=== PATIENT | male | born 1990 | race Caucasian/White ===

== ENCOUNTER 2019-06-04 09:31 | Emergency (ER) | payer SELFPAY ==
[2019-06-04] MEDS ORDERED: dexAMETHasone 10 MG/ML VIAL ONE (10:02)
[2019-06-04] MEDS ORDERED: KETOROLAC 30 MG/ML INJ ONE (10:02)
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
== END 2019-06-04 10:35 | disposition home or self-care (01) ==
LOC: ER 09:31
DX: M10.9 Gout, unspecified (principal)
CPT/HCPCS: 96374; 96375; 99283; J1100

== ENCOUNTER 2019-12-16 21:04 | Emergency (ER) | payer SELFPAY ==
[2019-12-16] MEDS ORDERED: HYDROCODONE/APAP 10/325 TAB ONE (22:29)
[2019-12-16] MEDS ORDERED: COLCHICINE 0.6 MG TAB ONE (22:29)
[2019-12-16] MEDS ORDERED: predniSONE 20 MG TAB ONE (22:29)
[2019-12-16] MEDS ORDERED: KETOROLAC 30 MG/ML INJ ONE (22:29)
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
--- NOTE | 2019-12-16 22:59 | RAD REPORT ---
EXAM DESCRIPTION: RAD - Foot Left 3 View - 12/16/2019 10:30 pm CLINICAL HISTORY: PAIN COMPARISON: FOOT AP LAT dated 01/15/2010; FOOT AP LAT dated 01/15/2010 FINDINGS: Small plantar calcaneal spur is noted. No fracture or dislocation evident. Multiple small radiodensities are seen in the soft tissues, likely foreign bodies.
[2019-12-17 00:48] VITALS: TEMP 98.2
[2019-12-17 00:50] VITALS: BP 123/92; O2SAT 99
== END 2019-12-16 23:22 | disposition home or self-care (01) ==
LOC: ER 21:04
DX: M25.472 Effusion, left ankle (principal); M10.9 Gout, unspecified
CPT/HCPCS: 96372; 99283; J7512

== ENCOUNTER 2020-03-08 10:21 | Emergency (ER) | payer SELFPAY ==
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
[2020-03-08] MEDS ORDERED: COLCHICINE 0.6 MG TAB ONE (11:32)
[2020-03-08] MEDS ORDERED: METHYLPREDNISOLONE 125 MG INJ ONE (11:33)
[2020-03-08 12:18] VITALS: TEMP 98.2; O2SAT 98
[2020-03-08 12:20] VITALS: BP 136/91
== END 2020-03-08 11:56 | disposition home or self-care (01) ==
LOC: ER 10:21
DX: M10.9 Gout, unspecified (principal); F17.210 Nicotine dependence, cigarettes, uncomplicated
CPT/HCPCS: 96372; 99284; J2930

== ENCOUNTER 2020-04-24 16:38 | Emergency (ER) | payer SELFPAY ==
[2020-04-24] MEDS ORDERED: KETOROLAC 30 MG/ML INJ ONE (17:25)
[2020-04-24] MEDS ORDERED: predniSONE 20 MG TAB ONE (17:25)
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
[2020-04-24] MEDS ORDERED: CIPROFLOXACIN HCL 500 MG TAB ONE (17:51)
[2020-04-24] MEDS ORDERED: COLCHICINE 0.6 MG TAB ONE (17:52)
[2020-04-24 18:07] VITALS: TEMP 97.8; O2SAT 99
[2020-04-24 18:08] VITALS: BP 120/80
== END 2020-04-24 18:01 | disposition home or self-care (01) ==
LOC: ER 16:38
DX: M10.9 Gout, unspecified (principal)
CPT/HCPCS: 96372; 99283; J7512

== ENCOUNTER 2020-12-05 11:32 | Emergency (ER) | payer SELFPAY ==
[2020-12-05] MEDS ORDERED: NA CHLORIDE 0.9% 1,000 ML ONE (12:46)
--- NOTE | 2020-12-05 12:54 | RAD REPORT ---
EXAM DESCRIPTION: RAD - Knee Left 3 View - 12/05/2020 12:45 pm CLINICAL HISTORY: PAIN COMPARISON: No comparisons FINDINGS: Soft tissue swelling is seen and involving the knee. Small to moderate suprapatellar joint effusion is evident. No fracture or dislocation. No erosion or aggressive bone lesion.
[2020-12-05] MEDS ORDERED: LIDOCAINE 1% MPF 5 ML VIAL ONE (12:58)
[2020-12-05] MEDS ORDERED: KETOROLAC 30 MG/ML INJ ONE (12:58)
[2020-12-05 13:00] LABS: ALT/SGPT 21 U/L (12-78); AST/SGOT 13 U/L (15-37); Albumin 3.6 g/dL (3.4-5.0); Alkaline Phosphatase 62 U/L (45-117); BUN Blood Urea Nitrogen 10 mg/dL (7-18); Bicarbonate 28 mmol/L (21-32); Bilirubin Total 0.5 mg/dL (0.2-1.0); Glucose Level 91 mg/dL (74-106); Potassium 4.2 mmol/L (3.5-5.1); Protein, Total 7.1 g/dL (6.4-8.2); Sodium Level 143 mmol/L (136-145); Uric Acid 7.6 mg/dL (3.5-7.2)
[2020-12-05 13:06] LABS: Absolute Lymphocytes (CBC) 0.9 K/uL (0.7-4.9); Basophils % 2.4 % (0-1.3); Hematocrit 37.5 % (39.6-49.0); Lymphocytes % 12.8 % (15.3-44.8); RBC Red Blood Cell Count 4.28 M/uL (4.33-5.43)
[2020-12-05 13:38] LABS: Platelet Estimate ADEQ
[2020-12-05 13:39] LABS: Blood Morphology Comment NOT SEEN (NOT SEEN)
[2020-12-05] MEDS ORDERED: LIDOCAINE 1% W/EPI 1:100,000 MDV 20 ML VIAL ONE (14:38)
[2020-12-05] MEDS ORDERED: COLCHICINE 0.6 MG TAB ONE (14:49)
[2020-12-05] MEDS ORDERED: CEFAZOLIN/SWI 1gm 1 GM/10 ML SYR ONE (14:49)
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
[2020-12-05 15:12] VITALS: BP 131/76; TEMP 97.2; O2SAT 99
[2020-12-05 16:09] LABS: Body Fluid WBC 18537 /mm^3
[2020-12-05 16:13] LABS: Appearance TURBID (CLEAR); Body Fluid Source SYNOVIAL; Color of fluid Yellow (COLORLESS)
== END 2020-12-05 15:05 | disposition home or self-care (01) ==
LOC: ER 11:32
PROC: 0S9D3ZX Drainage of Left Knee Joint, Percutaneous Approach, Diagnostic (ICD-10-PCS; principal; 2020-12-05)
DX: M25.462 Effusion, left knee (principal); M10.9 Gout, unspecified; F17.210 Nicotine dependence, cigarettes, uncomplicated
CPT/HCPCS: 36415; 80053; 84550; 85025; 87070; 89050; 96361; 96374; 96375; 99284; J0690; J7030

== ENCOUNTER 2021-04-18 12:20 | Emergency (ER) | payer SELFPAY ==
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
[2021-04-18] MEDS ORDERED: KETOROLAC 30 MG/ML INJ ONE (13:38)
[2021-04-18] MEDS ORDERED: METHYLPREDNISOLONE 125 MG INJ ONE (13:38)
[2021-04-18] MEDS ORDERED: COLCHICINE 0.6 MG TAB ONE (13:38)
[2021-04-18] MEDS ORDERED: CEPHALEXIN 250 MG CAP ONE (13:38)
[2021-04-18 13:53] VITALS: TEMP 98
[2021-04-18 13:55] VITALS: BP 137/88; O2SAT 100
== END 2021-04-18 13:47 | disposition home or self-care (01) ==
LOC: ER 12:20
DX: M10.071 Idiopathic gout, right ankle and foot (principal); F17.210 Nicotine dependence, cigarettes, uncomplicated
CPT/HCPCS: 96372; 99283; J2930

== ENCOUNTER 2021-04-22 09:00 | Emergency (ER) | payer SELFPAY ==
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
[2021-04-22 10:10] VITALS: BP 130/87; TEMP 97.8; O2SAT 98
== END 2021-04-22 10:05 | disposition home or self-care (01) ==
LOC: ER 09:00
DX: Z71.1 Person with feared health complaint in whom no diagnosis is made (principal)
CPT/HCPCS: 99281

== ENCOUNTER 2022-10-19 21:44 | Emergency (ER) | payer SELFPAY ==
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
[2022-10-20] MEDS ORDERED: COLCHICINE 0.6 MG TAB ONE
[2022-10-20] MEDS ORDERED: MAGNESIUM OXIDE 400 MG TAB ONE (00:01)
[2022-10-20] MEDS ORDERED: KETOROLAC 30 MG/ML INJ ONE (00:01)
[2022-10-20] MEDS ORDERED: dexAMETHasone 10 MG/ML VIAL ONE (00:01)
[2022-10-20 00:56] VITALS: BP 143/99; TEMP 98.8; O2SAT 97
== END 2022-10-20 00:51 | disposition home or self-care (01) ==
LOC: ER 21:44
DX: M10.9 Gout, unspecified (principal)
CPT/HCPCS: 96372; 96374; 99283

== ENCOUNTER 2022-12-11 12:47 | Emergency (ER) | payer SELFPAY ==
[2022-12-11] MEDS ORDERED: COLCHICINE 0.6 MG TAB ONE ×2 (14:00→16:14)
[2022-12-11] MEDS ORDERED: NA CHLORIDE 0.9% 1,000 ML ONE (14:00)
[2022-12-11] MEDS ORDERED: ACETAMINOPHEN 500 MG TAB ONE (14:00)
[2022-12-11 14:10] LABS: Hematocrit 39.2 % (39.6-49.0); Lymphocytes % 9.3 % (15.3-44.8); MCV 87.3 fL (80-100); MPV 7.7 fL (7.6-11.3); RBC Red Blood Cell Count 4.49 M/uL (4.33-5.43)
[2022-12-11 14:11] LABS: Absolute Lymphocytes (CBC) 1.2 K/uL (0.7-4.9)
[2022-12-11 14:32] LABS: Uric Acid 10.9 mg/dL (3.5-7.2)
[2022-12-11 15:28] LABS: SARS-COV-2 RT PCR NEGATIVE (NEGATIVE)
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
[2022-12-11] MEDS ORDERED: KETOROLAC 30 MG/ML INJ ONE (16:14)
[2022-12-11] MEDS ORDERED: dexAMETHasone 10 MG/ML VIAL ONE (16:14)
[2022-12-11 16:34] VITALS: TEMP 99
[2022-12-11 16:35] VITALS: BP 125/79; O2SAT 98
== END 2022-12-11 16:23 | disposition home or self-care (01) ==
LOC: ER 12:47
DX: M10.9 Gout, unspecified (principal)
CPT/HCPCS: 0240U; 36415; 80048; 84550; 85025; 96374; 96375; 99284; J1100; J7030

== ENCOUNTER 2023-07-25 19:08 | Emergency (ER) | payer SELFPAY ==
--- OUTSIDE RECORDS SUMMARY | 2023-07-25 19:17 | XMS REPORT | Continuity of Care Document ---
:1990 Author Organization [facility] t Address [address] [place] [address] Care Team Providers Name Role Phone PCP, PATIENT DOES NOT HAVE A Primary Care Physician Unavaila RUSS Garcia Attending Clinician Unavailable Russ Coronado DO Attending Clinician RUSS CORONADO Admitting Clinician Unavailable Problems This patient has no known problems. Allergies, Adverse Reactions, Alerts Allergy Allergy Status Severity Reaction(s) Onset Inactive Treating Comm ents Source Name Type Date Date Clinician NO KNOWN Drug Active Univers ALLERGIE Class ity of [facility] Social History Social Habit Start Date Stop Date Quantity Comments Source Sexual orientation [facility] Sex Assigned At [birth year] [facility] 00:00:00 00:00:00 [facility] Smoking Status Start Date Stop Date Source Tobacco smoking consumption [facility] Medications Ordered Filled Start Stop Current Ordering Indication Dosage Frequency Signature Comments Components Source Medication Medication Date Date Medication? Clinician (SIG) Name Name furosemide 2022- No 40mg 40 mg, IV U nivers (LASIX) 07-19 Push, ity of injection 02:30: 02[place]23 [place] 40 [place] :00 dose, On Medical Tue Branch 07/18/23 at 2130, ANEUDY HYDROcodone 2022- No 1{tbl} 1 tablet, Univers -acetaminop 07-19 Oral, ity of hen (NORCO) 02:30: 01[place] 10[place]325 mg 00 :00 dose, On Medica l tablet 1 Tue Branch tablet 07/18/23 at 2130, Routine naproxen Yes [id number] 550mg Take 1 U nivers sodium 9- tablet by ity of (ANAPROX 00:00: mouth in [place] DS) 550 mg 00 the Medical tablet morning Branch and 1 tablet in the evening. Take with meals. gabapentin 2022- Yes [id number] 300mg Take 1 Univers 300 mg 9- 10-07 capsule by ity of capsule 00:00: 04:59 mouth in [place] 00 :00 the Medical morning Branch and 1 capsule at noon and 1 capsule in the evening. Do all this for 10 days. Vital Signs Vital Name Observation Time Observation Value Comments Source Systolic blood 2023-07-19 02:00:00 174 mm[Hg] [facility] Diastolic blood 2023-07-19 02:00:00 119 mm[Hg] [facility] Heart rate 2023-07-19 02:00:00 89 /min [facility] Respiratory rate 2023-07-19 02:00:00 16 /min [facility] Oxygen saturation in 2023-07-19 02:00:00 98 /min [facility] Arterial blood by [facility] Pulse oximetry [place] Body temperature 2023-07-19 00:17:00 37.22 Amy [facility] Procedures Procedure Date / Time Performed Performing Clinician Sourc e XR CHEST 1 VW 2023-07-19 02:20:00 [facility] o [facility] COMP. METABOLIC PANEL 2023-07-19 01:31:00 Russ Coronado [facility] ([id number]) [facility] CBC WITH DIFF 2023-07-19 01:31:00 [facility] o f [facility] N-TERMINAL PRO-BNP 2023-07-19 01:31:00 Russ Coronado [facility] NOTICE OF PRIVACY 2023-07-19 00:05:04 Doctor Un[facility]igned[facility] CONSENT/REFUSAL FOR 2023-07-19 00:04:46 Doctor Unassigned, No [facility] DIAGNOSIS AND Name Medical Branch TREATMENT Encounters Start End Encounter Admission Attending Care Care Encounter Source Date/Time Date/Time Type Type Clinicians Facility Department ID 2023-07-18 2023-07-18 Emergency X [facility] ERT [id number] Univers 19:32:00 22:04:00 RUSS weaver [facility] 2023-07-18 2023-07-18 Emergency [facility] [id number] Univers 19:32:00 22:04:00 Russ POWERS [id number] i ty [facility] [id number] [facility] [id number] [address] Results Test Description Test Time Test Comments Results Result Comments Source N-TERMINAL PRO-BNP 2023-07-19 02:04:21 Test Item Value Reference Range Interpretation Comme nts NT-proBNP (test code = 93822-3) 69 pg/mL <=125 Lab Interpretation (test code = 93689-2) [facility][id number][facility]2023-07-19 01:55:59 Test Item Value Reference Range Interpretation Comments NA (test code = 138 mmol/L 135-145 5845294411) K (test code = 3.5 mmol/L 3.5-5.0 3665835927) CL (test code = 97 mmol/L 98-108 L 3712777084) CO2 TOTAL (test code = 32 mmol/L 23-31 H 7056226980) AGAP (test code = 9 2-16 3131546770) BUN (test code = 19 mg/dL 7-23 8509917018) GLUCOSE (test code = 129 mg/dL 70-110 H 6615342775) CREATININE (test code = 1.02 mg/dL 0.60-1.25 6335913843) TOTAL BILI (test code = 0.3 mg/dL 0.1-1.6 2058335716) CALCIUM (test code = 9.2 mg/dL 8.6-10.6 3039142469) T PROTEIN (test code = 7.7 g/dL 6.3-8.2 5691406057) ALBUMIN (test code = 4.1 g/dL 3.5-5.0 1717542216) ALK PHOS (test code = 52 U/L 34-122 5249728017) ALTv (test code = 30 U/L 5-50 1742-6) AST(SGOT) (test code = 20 U/L 13-40 5005524206) eGFR (test code = 83.1 mL/min/1.73m2 6946356242) ABBY (test code = ABBY) Association of Glomerular Filtration Rate (GFR) and Staging of Kidney Disease* + --+ --+ ------+| GFR (mL/min/1.73 m2) ?| With Kidney Damage ?| ?Without Kidney Damage+ --------+ --------+ +| ?>90 ?| ?Stage one ?| ? Normal ?+ ---+ ---+ -------+| ?60-89 ?| ?Stage two ?| ? Decreased GFR ? + --+ --+ ------+| ?30-59 ?| ?Stage three ?| ? Stage three ? + --+ --+ ------+| ?15-29 ?| ?Stage four ? | ? Stage four ?+ ---+ ---+ -------+| ?<15 (or dialysis) ? ?| ?Stage five ? | ? Stage five ?+ ---+ ---+ -------+ *Each stage assumes the associated GFR level has been in effect for at least three months. ?Stages 1 to 5, with or without kidney disease, indicate chronic kidney disease. Notes: Determination of stages one and two (with eGFR >59mL/min/1.73 m2) requires estimation of kidney damage for at least three months as defined by structural or functional abnormalities of the kidney, manifested by either:Pathological abnormalities or Markers of kidney damage (including abnormalities in the composition of the blood or urine or abnormalities in imaging tests). Lab Interpretation Abnormal (test code = 07638-9) [facility] WITH [id number] 01:42:37 Test Item Value Reference Range Interpretation Comments WBC (test code = 8.62 See_Comment [Automated 9963-2) message] The sy stem which generated this result transmitted reference range : 4.20 - 10.70 10*3/?L. The reference range was not used to interpret this result as normal/abnormal . RBC (test code = 4.02 See_Comment L [Automated 423-8) message] The sy stem which generated this result transmitted reference range : 4.26 - 5.52 10*6/?L. The reference range was not used to interpret this result as normal/abnormal . HGB (test code = 11.7 g/dL 12.2-16.4 L 718-7) HCT (test code = 35.2 % 38.4-49.3 L 4544-3) MCV (test code = 87.6 fL 81.7-95.6 787-2) MCH (test code = 29.1 pg 26.1-32.7 785-6) MCHC (test code = 33.2 g/dL 31.2-35.0 786-4) RDW-SD (test code = 39.8 fL 38.5-51.6 13446-0) RDW-CV (test code = 12.3 % 12.1-15.4 788-0) PLT (test code = 400 See_Comment H [Automated 777-3) message] The sy stem which generated this result transmitted reference range : 150 - 328 10*3/ ?L. The reference r jesus was not used to interpret this result as normal/abnormal . MPV (test code = 10.1 fL 9.8-13.0 51528-2) NRBC/100 WBC (test 0.0 See_Comment [Automat ed code = 8279027602) message] The system which generated this result transmitted reference range : 0.0 - 10.0 /100 WBCs. The refer ence range was not u sed to interpret th is result as normal/abnormal . NRBC x10^3 (test code See_Comment [Auto mated = [id number]) message] The s ystem which generated this result transmitted reference range : 10*3/?L. The reference range was not used to interpret this result as normal/abnormal . GRAN MAT (NEUT) % 60.6 % (test code = 770-8) IMM GRAN % (test code 0.60 % = 2428528154) LYMPH % (test code = 23.0 % 736-9) MONO % (test code = 8.1 % 5905-5) EOS % (test code = 7.1 % 713-8) BASO % (test code = 0.6 % 706-2) GRAN MAT x10^3(ANC) 5.23 10*3/uL 1.99-6.95 (test code = 2270505407) IMM GRAN x10^3 (test 0.05 10*3/uL 0.00-0.06 code = 0999472664) LYMPH x10^3 (test code 1.98 10*3/uL 1.09-3.23 = 731-0) MONO x10^3 (test code 0.70 10*3/uL 0.36-1.02 = 742-7) EOS x10^3 (test code = 0.61 10*3/uL 0.06-0.53 H 711-2) BASO x10^3 (test code 0.05 10*3/uL 0.01-0.09 = 704-7) Lab Interpretation Abnormal (test code = 74340-1) [facility]"
[2023-07-25] MEDS ORDERED: CYCLOBENZAPRINE 10 MG TAB ONE (20:10)
[2023-07-25] MEDS ORDERED: dexAMETHasone 4 MG/ML VIAL ONE (20:10)
[2023-07-25] MEDS ORDERED: KETOROLAC 30 MG/ML INJ ONE (20:11)
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
[2023-07-25 21:05] VITALS: BP 135/101; TEMP 98.3; O2SAT 99
== END 2023-07-25 21:01 | disposition home or self-care (01) ==
LOC: ER 19:08
DX: M13.88 Other specified arthritis, other site (principal); G89.29 Other chronic pain
CPT/HCPCS: 96372; 99284; J1100

== ENCOUNTER 2023-08-01 20:23 | Emergency (ER) | payer SELFPAY ==
--- OUTSIDE RECORDS SUMMARY | 2023-08-01 20:30 | XMS REPORT | Continuity of Care Document ---
:1990 Author Organization [facility] t Address [address] [facility] [place] [place] [address] Care Team Providers Name Role Phone PCP, [...] Drug Active Univers ALLERGIE Class ity of [facility] Social History Social Habit Start Date Stop Date Quantity Comments Source Sexual orientation [facility] Sex Assigned At [birth year] Uni [facility] 00:00:00 00:00:00 [facility] Smoking Status Start Date Stop Date Source Tobacco smoking consumption [facility] Medications Ordered Filled Start Stop Current [...] tablet 07/18/23 at 2130, Routine naproxen Yes [id number] 550mg Take 1 U nivers sodium - tablet by ity of (ANAPROX 00:00: mouth in [place] DS) 550 mg 00 the Medical tablet morning Branch and 1 tablet in the evening. Take with meals. gabapentin 2022- Yes [id number] 300mg Take 1 Univers 300 mg - 10-07 capsule by ity of capsule 00:00: 04:59 mouth in [place] 00 :00 the Medical morning Branch and 1 capsule at noon and 1 capsule in the evening. Do all this for 10 days. Vital Signs Vital Name Observation Time Observation Value Comments Source Systolic blood 2023-07-19 02:00:00 174 mm[Hg] [facility] Diastolic blood 2023-07-19 02:00:00 119 mm[Hg] [facility] Heart rate 2023-07-19 02:00:00 89 [facility] Respiratory rate 2023-07-19 02:00:00 16 /min [facility] Oxygen saturation in 2023-07-19 02:00:00 98 /min [facility] Arterial blood by [facility] Pulse oximetry [place] Body temperature 2023-07-19 00:17:00 37.22 Amy [facility] Procedures Procedure Date / Time Performed Performing Clinician Sourc e XR CHEST 1 VW 2023-07-19 02:20:00 Coronado, [facility] o [facility] COMP. METABOLIC PANEL 2023-07-19 01:31:00 Russ Coronado [facility] ([id number]) [facility] CBC WITH DIFF 2023-07-19 01:31:00 Coronado, [facility] o f [facility] N-TERMINAL PRO-BNP 2023-07-19 01:31:00 Russ Coronado [facility] NOTICE OF PRIVACY 2023-07-19 00:05:04 Doctor Unassigned, No [facility] PRACTICES [facility] CONSENT/REFUSAL FOR 2023-07-19 00:04:46 [facility], [facility] AND Name Medical Branch TREATMENT Encounters Start End Encounter Admission Attending Care Care Encounter Source Date/Time Date/Time Type Type Clinicians Facility Department ID 2023-07-18 2023-07-18 Emergency X [facility] ERT [id number] Univers 19:32:00 22:04:00 RUSS weaver [facility] 2023-07-18 2023-07-18 Emergency [facility] [id number] Univers 19:32:00 22:04:00 Russ POWERS [id number] i ty [facility] [id number] [facility] [id number] [address] Results Test Description Test Time Test Comments Results Result Comments Source N-TERMINAL PRO-BNP 2023-07-19 02:04:21 Test Item Value Reference Range Interpretation Comme nts NT-proBNP (test code = 88017-8) 69 pg/mL <=125 Lab Interpretation (test code = 16432-0) Normal [id number]2023-07-19 01:55:59 Test Item Value Reference Range Interpretation Comments NA (test code = 138 mmol/L 135-145 6589876224) K (test code = 3.5 mmol/L 3.5-5.0 8583031688) CL (test code = 97 mmol/L 98-108 L 3716492618) CO2 TOTAL (test code = 32 mmol/L 23-31 H 0702244861) AGAP (test code = 9 2-16 0068161846) BUN (test code = 19 mg/dL 7-23 1540872146) GLUCOSE (test code = 129 mg/dL 70-110 H 5366232577) CREATININE (test code = 1.02 mg/dL 0.60-1.25 0705812212) TOTAL BILI (test code = 0.3 mg/dL 0.1-1.5 9636389483) CALCIUM (test code = 9.2 mg/dL 8.6-10.6 6346576800) T PROTEIN (test code = 7.7 g/dL 6.3-8.2 8520307776) ALBUMIN (test code = 4.1 g/dL 3.5-5.0 8820009840) ALK PHOS (test code = 52 U/L 34-122 5790962029) ALTv (test code = 30 U/L 5-50 1742-6) AST(SGOT) (test code = 20 U/L 13-40 1989118837) eGFR (test code = 83.1 mL/min/1.73m2 5886203845) ABBY (test code = ABBY) Association of [...] tests). Lab Interpretation Abnormal (test code = 31620-0) [facility] WITH [id number] 01:42:37 Test Item Value Reference Range Interpretation Comments WBC (test code = 8.62 See_Comment [Automated 8444-2) message] The sy stem which generated this result transmitted reference range : 4.20 - 10.70 10*3/?L. The reference range was not used to interpret this result as normal/abnormal . RBC (test code = 4.02 See_Comment L [Automated 176-8) message] The sy stem which generated this [...] RDW-SD (test code = 39.8 fL 38.5-51.6 89163-2) RDW-CV (test code = 12.3 % 12.1-15.4 788-0) PLT (test code = 400 See_Comment H [Automated 777-3) message] The sy stem which generated this result transmitted reference range : 150 - 328 10*3/ ?L. The reference r jesus was not used to interpret this result as normal/abnormal . MPV (test code = 10.1 fL 9.8-13.0 04300-7) NRBC/100 WBC (test 0.0 See_Comment [Automat ed code = 6632354412) message] The system which generated this result transmitted reference range : 0.0 - 10.0 /100 WBCs. The refer ence range was not u sed to interpret th is result as normal/abnormal . NRBC x10^3 (test code See_Comment [Auto mated = 2898980382) message] The s ystem which generated this result transmitted reference range : 10*3/?L. The reference range was not used to interpret this result as normal/abnormal . GRAN MAT (NEUT) % 60.6 % (test code = 770-8) IMM GRAN % (test code 0.60 % = 2810757888) LYMPH % (test code = 23.0 % 736-9) MONO % (test code = 8.1 % 5905-5) EOS % (test code = 7.1 % 713-8) BASO % (test code = 0.6 % 706-2) GRAN MAT x10^3(ANC) 5.23 10*3/uL 1.99-6.95 (test code = 3157193690) IMM GRAN x10^3 (test 0.05 10*3/uL 0.00-0.06 code = 3366744173) LYMPH x10^3 (test code 1.98 10*3/uL 1.09-3.23 = 731-0) MONO x10^3 (test code 0.70 10*3/uL 0.36-1.02 = 742-7) EOS x10^3 (test code = 0.61 10*3/uL 0.06-0.53 H 711-2) BASO x10^3 (test code 0.05 10*3/uL 0.01-0.09 = 704-7) Lab Interpretation Abnormal (test code = 58211-3) [facility]"
[2023-08-01 21:46] LABS: Absolute Lymphocytes (CBC) 0.7 K/uL (0.7-4.9); Hematocrit 34.3 % (39.6-49.0); Lymphocytes % 4.1 % (15.3-44.8); MCV 83.6 fL (80-100); MPV 7.8 fL (7.6-11.3); Platelets 395 thou/uL (152-406); RBC Red Blood Cell Count 4.11 M/uL (4.33-5.43)
[2023-08-01] MEDS ORDERED: COLCHICINE 0.6 MG TAB ONE ×2 (21:50→23:25)
[2023-08-01] MEDS ORDERED: METHYLPREDNISOLONE 125 MG INJ ONE (21:50)
[2023-08-01] MEDS ORDERED: MORPHINE 4 MG/ML SYR ONE (21:50)
[2023-08-01] MEDS ORDERED: KETOROLAC 30 MG/ML INJ ONE (21:51)
[2023-08-01] MEDS ORDERED: LIDOCAINE 2% W/EPI 1:200,000 MPF 20 ML VIAL IM ONE (21:51)
[2023-08-01] MEDS ORDERED: NA CHLORIDE 0.9% 1,000 ML ONE (21:51)
[2023-08-01 22:03] LABS: Albumin 3.3 g/dL (3.4-5.0); Bilirubin Total 0.6 mg/dL (0.2-1.0); Potassium 4.3 mEq/L (3.5-5.1); Protein, Total 7.8 g/dL (6.4-8.2); Uric Acid 7.8 mg/dL (3.5-7.2)
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
--- NOTE | 2023-08-01 22:25 | RAD REPORT ---
EXAM DESCRIPTION: RAD - Knee Right 3 View - 08/01/2023 9:38 pm CLINICAL HISTORY: PAIN COMPARISON: No comparisons TECHNIQUE: Right knee, 3 views. FINDINGS: No fracture, dislocation or periosteal reaction. No joint space narrowing. Soft tissue swe lling anteriorly with moderate to large joint effusion. IMPRESSION: Soft tissue swelling anteriorly with moderate to large joint effusion. No acute osseus a bnormality.
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
[2023-08-01 22:44] LABS: Blood Morphology Comment NOT SEEN (NOT SEEN); Platelet Estimate ADEQ
[2023-08-01] MEDS ORDERED: CEFAZOLIN SODIUM 1 GM/VIAL ONE (23:03)
[2023-08-01] MEDS ORDERED: NA CHLORIDE 0.9% 100 ML ONE (23:03)
[2023-08-01] MEDS ORDERED: SMZ./TMP. 800/160 MG TABLET ONE (23:11)
[2023-08-01 23:50] VITALS: TEMP 98.5
[2023-08-01 23:55] VITALS: BP 127/82; O2SAT 96
[2023-08-02 00:13] LABS: Appearance VERY TURBID (CLEAR); Body Fluid Source SYNOVIAL; Color of fluid Yellow (COLORLESS)
[2023-08-02 00:14] LABS: Body Fluid WBC 23082 /mm^3
== END 2023-08-01 23:23 | disposition home or self-care (01) ==
LOC: ER 20:23
PROC: 0S9C3ZX Drainage of Right Knee Joint, Percutaneous Approach, Diagnostic (ICD-10-PCS; principal; 2023-08-01)
DX: M25.461 Effusion, right knee (principal); M10.9 Gout, unspecified; R73.9 Hyperglycemia, unspecified; D72.829 Elevated white blood cell count, unspecified
CPT/HCPCS: 36415; 80053; 82945; 83615; 84157; 84550; 85025; 87070; 89050; 89060; 96361; 96374; 96375; 99284; J0690; J2930; J7030

== ENCOUNTER 2024-06-01 07:16 | Emergency (ER) | payer SELFPAY ==
[2024-06-01] MEDS ORDERED: NA CHLORIDE 0.9% 1,000 ML ONE (07:32)
[2024-06-01] MEDS ORDERED: KETOROLAC 30 MG/ML INJ ONE (07:32)
[2024-06-01] MEDS ORDERED: MORPHINE 4 MG/ML SYR ONE (07:32)
[2024-06-01] MEDS ORDERED: COLCHICINE 0.6 MG TAB ONE ×2 (07:32)
[2024-06-01] MEDS ORDERED: NA CHLORIDE 0.9% 100 ML ONE (07:55)
[2024-06-01] MEDS ORDERED: CEFAZOLIN SODIUM 1 GM/VIAL ONE (07:55)
[2024-06-01 08:10] LABS: ALT/SGPT 28 U/L (16-61); Albumin 3.6 g/dL (3.4-5.0); Albumin/Globulin Ratio 0.9 (1.1-1.8); Alkaline Phosphatase 46 U/L (45-117); Anion Gap 6.9 mEq/L (5.0-15.0); BUN Blood Urea Nitrogen 16 mg/dL (7-18); Bicarbonate 31 mEq/L (21-32); Bilirubin Total 0.5 mg/dL (0.2-1.0); Globulin 3.9 g/dL (2.3-3.5); Glomerular Filtration Rate 88 ml/min (=/>90); Glucose Level 109 mg/dL (74-106); Potassium 3.9 mEq/L (3.5-5.1); Protein, Total 7.5 g/dL (6.4-8.2); Sodium Level 138 mEq/L (136-145); Uric Acid 10.3 mg/dL (3.5-7.2)
[2024-06-01 08:18] LABS: AST/SGOT < 10 U/L (15-37)
--- NOTE | 2024-06-01 08:33 | RAD REPORT ---
EXAM DESCRIPTION: RAD - Knee Left 3 View - 06/01/2024 8:00 am CLINICAL HISTORY: Left knee pain FINDINGS: No fracture or dislocation is seen. No bony abnormality is visualized. Soft tissue swelling present. Moderate joint effusion
[2024-06-01 08:50] LABS: Absolute Basophils 0.1 K/uL (0-0.5); Absolute Eosinophils 0.2 K/uL (0-0.5); Absolute Lymphocytes (CBC) 2.2 K/uL (0.7-4.9); Absolute Monocytes 1.4 K/uL (0.1-1.3); Absolute Neutrophil 8.8 K/uL (1.8-8.0); Basophils % 0.6 % (0-1.3); Eosinophils % 1.7 % (0-4.4); Hematocrit 37.9 % (39.6-49.0); Hemoglobin 12.6 g/dL (13.6-17.9); Lymphocytes % 17.6 % (15.3-44.8); MCHC 33.2 g/dL (32.0-36.0); MCV 87.3 fL (80-100); MPV 7.9 fL (7.6-11.3); Monocytes % 10.8 % (3.3-12.3); Neutrophils % 69.3 % (41.7-73.7); Platelets 261 thou/uL (152-406); RBC Red Blood Cell Count 4.34 M/uL (4.33-5.43); Red Cell Distribution Width 13.8 % (12.1-15.2)
[2024-06-01] MEDS ORDERED: LIDOCAINE 2% W/EPI 1:200,000 MPF 20 ML VIAL IM ONE (09:46)
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
[2024-06-01 11:08] VITALS: TEMP 98.4
[2024-06-01 11:12] VITALS: BP 119/80; O2SAT 98
== END 2024-06-01 11:03 | disposition home or self-care (01) ==
LOC: ER 07:16
PROC: 0S9D3ZZ Drainage of Left Knee Joint, Percutaneous Approach (ICD-10-PCS; principal; 2024-06-01)
DX: M25.462 Effusion, left knee (principal); M10.9 Gout, unspecified
CPT/HCPCS: 36415; 80053; 84550; 85025; 96361; 96365; 96375; 99285; J0690; J7030

== ENCOUNTER 2024-09-22 18:53 | Emergency (ER) | payer SELFPAY ==
--- OUTSIDE RECORDS SUMMARY | 2024-09-22 18:56 | XMS REPORT | Continuity of Care Document ---
Author Name Unknown Address [address] [place] [address] [facility] thconnect Address [address] [place] [address] Care Team Providers Care Slag Wheeler Name Role Phone OTHER, ENTER NAME IN NOTES Primary Care Physicia n Unavailable GROVER KAPADIA Attending Clinician Unavailable RUSS CORONADO Attending Clinician Unavailable Russ Coronado DO Attending Clinician [phone] RUSS CORONADO Admitting Clinician Unavailable Allergies, Adverse Reactions, Alerts Allergy Name Allergy Type Status Severity Reaction(s) Onset Date Inactive Date Treating Clinician Comments Source NO KNOWN ALLERGIE S Drug Class Active [facility] Social History Social Habit Start Date Stop Date Quantity Comments Source Sexual orientation U [facility] Sex Assigned At 1990 00:00:00 1990 00:00:00 [facility] Smoking Status Start Date Stop Date Source Tobacco smoking consumption unknown [facility] Medications Ordered Medication Name Filled Medication Name Start Date Stop Date Current Medication? Ordering Clinician Indication Dosage Frequency Signature (SIG) Comments Components Source Methylpredn isolone (Medrol Dosepak *) 1 Pkt Tab Ther Pack Methylpredn isolone (Medrol Dosepak *) 1 Pkt Tab Ther Pack 07-15 22:57: 00 [facility] ([facility]IX[facility] 40 mg 07-19 02:30: 00 07-19 02:23 :00 No 40mg 40 mg, IV Push, ONCE, 1 dose, On Mon07/18/23 at 2130, ANEUDY [facility] HYDROcodone -acetaminop hen (NORCO) 10-325 mg tablet 1 tablet 07-19 02:30: 00 07-19 01:31 :00 No 1{tbl} 1 tablet, Oral, ONCE, 1 dose, On Mon07/18/23 at 2130, Routine [facility] naproxen sodium (ANAPROX DS) 550 mg tablet 07-18 00:00: 00 Yes [id number] 550mg Take 1 tablet by mouth in the morning and 1 tablet in the evening. Take with meals. [facility] gabapentin 300 mg capsule 07-18 00:00: 00 07-29 04:59 :00 No [id number] 300mg Take 1 capsule by mouth in the morning and 1 capsule at noon and 1 capsule in the evening. Do all this for 10 days. [facility] Vital Signs Vital Name Observation Time Observation Value Comments S ource Height 2024-07-15 19:35:00 185.800115 cm [facility] Weight 2024-07-15 19:35:00 113.279161 kg [facility] BMI (Body Mass Index) 2024-07-15 19:35:00 33.0 kg/m2 [facility] Systolic blood pressure 2023-07-19 02:00:00 174 mm[Hg] [facility] acute hospital Diastolic blood pressure 2023-07-19 02:00:00 119 mm[Hg] [facility] acute hospital Heart rate 2023-07-19 02:00:00 89 /min [facility] Respiratory rate 2023-07-19 02:00:00 16 /min [facility] Oxygen saturation in Arterial blood by Pulse oximetry 2023-07-19 02:00:00 98 /min [facility] Body temperature 2023-07-19 00:17:00 37.22 Amy [facility] Procedures Procedure Date / Time Performed Performing Clinicia n Source XR CHEST 1 VW 2023-07-19 02:20:00 Russ Coronado [facility] COMP. METABOLIC PANEL (49503) 2023-07-19 01:31:00 Russ Coronado [facility] CBC WITH DIFF 2023-07-19 01:31:00 Singer [facility] N-TERMINAL PRO-BNP 2023-07-19 01:31:00 Singer Russ [facility] NOTICE OF PRIVACY PRACTICES 2023-07-19 00:05:04 Doctor Unassigned, [place] [facility] CONSENT/REFUSAL FOR DIAGNOSIS AND TREATMENT 2023-07-19 00:04:46 Doctor Unassigned, [place] [facility] Encounters Start Date/Time End Date/Time Encounter Type Admission Type Attending [facility] Care Department Encounter ID Source 2024-07-15 19:26:00 2024-07-15 23:05:00 Emergency ER GROVER KAPADIA [facility] [id number] [facility] 2024-07-15 19:26:00 2024-07-15 23:05:00 Departed Emergency Room [facility] [id number] [address] [facility] 2023-07-18 19:32:00 2023-07-18 22:04:00 Emergency X [facility]ONADORUSS [facility] ERT [id number] [facility] 2023-07-18 19:32:00 2023-07-18 22:04:00 Emergency Russ Coronado [facility] [id number] [facility] Results Test Description Test Time Test Comments Results Result Co mments Source [facility] (69134[facility]2023-07-19 01:55:59* Test Item Value Reference Range Interpretation Comme nts NA (test code = 0833287099) 138 mmol/L 135-145 K (test code = 6859548619) 3.5 mmol/L 3.5-5.0 CL (test code = 8686335939) 97 mmol/L 98-108 L CO2 TOTAL (test code = 2986139462) 32 mmol/L 23-31 H AGAP (test code = 8682091534) 9 2-16 BUN (test code = 2851357379) 19 mg/dL 7-23 GLUCOSE (test code = 1122805675) 129 mg/dL 70-110 H CREATININE (test code = 9923537511) 1.02 mg/dL 0.60-1.25 TOTAL BILI (test code = 0550576357) 0.3 mg/dL 0.1-1.1 CALCIUM (test code = 1931479267) 9.2 mg/dL 8.6-10.6 T PROTEIN (test code = 0950892525) 7.7 g/dL 6.3-8.2 ALBUMIN (test code = 3320424009) 4.1 g/dL 3.5-5.0 ALK PHOS (test code = 9514811475) 52 U/L 34-122 ALTv (test code = 1742-6) 30 U/L 5-50 AST(SGOT) (test code = 8322485749) 20 U/L 13-40 eGFR (test code = 6239150242) 83.1 mL/min/1.73m2 ABBY (test code = ABBY) Association of [...] or abnormalities in imaging tests). Lab Interpretation (test code = 95777-5) Abnormal [facility] WITH [id number] 01:42:37* Test Item Value Reference Range Interpretation Comme nts WBC (test code = 6690-2) 8.62 See_Comment [[employer]] The system which generated this result transmitted reference range: 4.20 - 10.70 10*3/?L. The reference range was not used to interpret this result as normal/abnormal. RBC (test code = 789-8) 4.02 See_Comment L [[employer]] The system which generated this result transmitted reference range: 4.26 - 5.52 10*6/?L. The reference range was not used to interpret this result as normal/abnormal. HGB (test code = 718-7) 11.7 g/dL 12.2-16.4 L HCT (test code = 4544-3) 35.2 % 38.4-49.3 L MCV (test code = 787-2) 87.6 fL 81.7-95.6 MCH (test code = 785-6) 29.1 pg 26.1-32.7 MCHC (test code = 786-4) 33.2 g/dL 31.2-35.0 RDW-SD (test code = 95076-6) 39.8 fL 38.5-51.6 RDW-CV (test code = 788-0) 12.3 % 12.1-15.4 PLT (test code = 777-3) 400 See_Comment H [Automated messa ge] The system which generated this result transmitted reference range: 150 - 328 10*3/?L. The reference range was not used to interpret this result as normal/abnormal. MPV (test code = 93708-4) 10.1 fL 9.8-13.0 NRBC/100 WBC (test code = 0628753422) 0.0 See_Comment [Automated me ssage] The system which generated this result transmitted reference range: 0.0 - 10.0 /100 WBCs. The reference range was not used to interpret this result as normal/abnormal. NRBC x10^3 (test code = 2553208695) See_Comment [Automated messa ge] The system which generated this result transmitted reference range: 10*3/?L. The reference range was not used to interpret this result as normal/abnormal. GRAN MAT (NEUT) % (test code = 770-8) 60.6 % IMM GRAN % (test code = 4608876539) 0.60 % LYMPH % (test code = 736-9) 23.0 % MONO % (test code = 5905-5) 8.1 % EOS % (test code = 713-8) 7.1 % BASO % (test code = 706-2) 0.6 % GRAN MAT x10^3(ANC) (test code = 8732859463) 5.23 10*3/uL 1.99-6.95 IMM GRAN x10^3 (test code = 3538111171) 0.05 10*3/uL 0.00-0.06 LYMPH x10^3 (test code = 731-0) 1.98 10*3/uL 1.09-3.23 MONO x10^3 (test code = 742-7) 0.70 10*3/uL 0.36-1.02 EOS x10^3 (test code = 711-2) 0.61 10*3/uL 0.06-0.53 H BASO x10^3 (test code = 704-7) 0.05 10*3/uL 0.01-0.09 Lab Interpretation (test code = 97236-8) Abnormal [facility] Notes <thead> Date/Time Note Provider Source [facility] [id number] 16:03:45 [facility]2024-09-29 16:03:45 Future Tests Future scheduled test information is unavailable Pending Tests Pending diagnostic test information is unavailable Future Visits Future appointment information is unavailable Referrals to Other Providers <thead> Reason for Referral Referral Start Date Provider Provider Contact Information Provider Address ENTER NAME IN NOTES OTHER Future Procedures Future procedure information is unavailable Future Medications Future medication information is unavailable Patient Instructions <tbody> Gout, [id number] [facility]2024-09-24 11:20:24 Patient Care Team <thead> Team Status: Active Member Role Status Dates ENTER NAME IN NOTES OTHER primary care physician Activ e GROVER KAPADIA , DO Emergency Provider Active ENTER NAME IN NOTES OTHER Primary Care Physician Activ e DAYANNA DIETRICH Next of Kin Active DAYANNA DIETRICH Emergency Contact Active [facility]2024-09-24 11:20:24 [facility]2024-09-24 11:20:24 Future Tests Future scheduled test information is unavailable Pending Tests Pending diagnostic test information is unavailable Future Visits Future appointment information is unavailable Referrals to Other Providers <thead> Reason for Referral Referral Start Date Provider Provider Contact Information Provider Address ENTER NAME IN NOTES OTHER Future Procedures Future procedure information is unavailable Future Medications Future medication information is unavailable Patient Instructions <tbody> Gout, [id number] [facility]"
[2024-09-22] MEDS ORDERED: IBUPROFEN 400 MG TAB ONE (20:12)
[2024-09-22] MEDS ORDERED: HYDROCODONE/APAP 5/325 MG TAB ONE (20:12)
--- NOTE | 2024-09-22 20:32 | RAD REPORT ---
EXAMINATION: XR RIGHT ELBOW CLINICAL INDICATION: Male, 34 years old. PAIN RIGHT TECHNIQUE: Multiple views of the right elbow were obtained. COMPARISON: No prior exam. FINDINGS: Small olecranon spur. Significant soft tissue swelling adjacent to the olecranon compatible with olecranon bursitis. No acute fracture seen.
[2024-09-22] MEDS ORDERED: LIDOCAINE 2% W/EPI 1:200,000 MPF 20 ML VIAL IM ONE (21:20)
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
[2024-09-22] MEDS ORDERED: CEPHALEXIN 250 MG CAP ONE (22:51)
[2024-09-22 23:14] LABS: Body Fluid WBC 1527 /mm^3
[2024-09-22 23:15] LABS: Appearance VERY TURBID (CLEAR); Body Fluid Source SYNOVIAL; Color of Supernate Not Xanthochromic (Not Xantho); Color of fluid Red (COLORLESS); Tube # SINGLE
[2024-09-22 23:45] LABS: Body Fluid Lymphocytes 27 %; Fluid Total Cells Count 100
[2024-09-23 02:36] VITALS: TEMP 98.1; O2SAT 98
[2024-09-23 02:38] VITALS: BP 148/91
== END 2024-09-22 22:58 | disposition home or self-care (01) ==
LOC: ER 18:53
DX: M70.21 Olecranon bursitis, right elbow (principal)
CPT/HCPCS: 36415; 87070; 89050; 89060; 99284